=== PATIENT | male | born 1945 | race Caucasian/White ===

== ENCOUNTER 2023-01-14 16:27 | Emergency (ER) | payer OTHER, SELFPAY ==
[2023-01-14] VITALS (18 sets, daily range): BP systolic 110–165; BP diastolic 64–80; PULSE 85–109; RESP 15–33; TEMP 37.3; O2SAT 94–100
--- NOTE | ~2023-01-14 | CT_ITS ---
EXAMINATION: CT brain wo con DATE: 01/14/2023 18:55 INDICATION: Syncope. Possible seizure. Metastatic disease. TECHNIQUE: Computed tomography (CT) of the head was performed without intravenous contrast. Sagittal and coronal reconstructions were performed. The mA was adjusted according to patient size. Iterative reconstruction technique was employed. The dose-length product was 605.33 mGy-cm. COMPARISON: None FINDINGS: No acute intracranial hemorrhage, acute infarction or abnormal extra axial fluid collection. There is moderate scattered white matter hypoattenuation consistent with chronic small vessel ischemi c disease. Ventricles are normal and symmetric. No mass/mass effect. Changes of bilateral intraocula r lens replacement. The orbits, paranasal sinuses and left mastoid air cells are normal. Moderate rig ht mastoid effusion. IMPRESSION: 1. No acute intracranial process. 2. Moderate scattered white matter hypoattenuation consistent with chronic small vessel ischemic dise ase. Reviewed, dictated and finalized at location A. IMPRESSION: 1. No acute intracranial process. 2. Moderate scattered white matter hypoattenuation consistent with chronic smal l vessel ischemic disease.
--- NOTE | ~2023-01-14 | XR_ITS ---
EXAMINATION: XR chest 2V DATE: 01/14/2023 19:01 INDICATION: Syncope TECHNIQUE: frontal and lateral views of the chest were obtained. COMPARISON: None FINDINGS: Opacities at the left lower lung zone which includes a small left pleural effusion with blunting at t he posterior sulcus. Mild streaky atelectasis at the right costophrenic angle. No pulmonary edema, or pneumothorax or right-sided pleural effusion. Heart size is normal. Mild upper thoracic levocurvatur e with mild spondylosis. There are bridging osteophytes at multiple levels in the spine, consistent w ith diffuse idiopathic skeletal hyperostosis (DISH). IMPRESSION: 1. Small left pleural effusion with mild left basilar atelectasis versus less likely pneumonia. Reviewed, dictated and finalized at location A. IMPRESSION: 1. Small left pleural effusion with mild left basilar atelectasis versus less l ikely pneumonia.
--- NOTE | ~2023-01-14 | US_ITS ---
EXAMINATION: US venous doppler UE DATE: 01/14/2023 18:17 INDICATION: Left upper limb swelling TECHNIQUE: Grayscale images without and with compression and Doppler images of the left upper extremi ty veins were obtained. COMPARISON: None. FINDINGS: The left internal jugular vein, subclavian vein, axillary vein, brachial vein, basilic vein, radial v ein, and ulnar vein are patent. Noncompressible thrombus in the partially compressible left cephalic vein. IMPRESSION: 1. Thrombus in the left cephalic vein. Reviewed, dictated and finalized at location A.
--- NOTE | 2023-01-14 16:50 | ECG_ITS ---
Measurements Intervals [place] Rate: 102 P: 29 [place]: 136 QRS: 32 QRSD: 148 T: 18 QT: 383 QTc: 501 Interpretive Statements SINUS TACHYCARDIA RIGHT BUNDLE BRANCH BLOCK [120+ ms QRS DURATION, UPRIGHT V1, 40+ ms S IN I/aVL/V4/V5/V6] NO PREVIOUS ECG AVAILABLE FOR COMPARISON Electronically Signed On 01-14-2023 17:19:13 CDT by Gillian Marsh M.D.
[2023-01-14 17:17] LABS: Hematocrit 26.5 % (42.0-52.0); Hemoglobin 8.4 g/dL (14.0-18.0); Mean Corpuscular HGB Conc 31.7 g/dl (32-36); Mean Corpuscular Volume 94.6 fl (80-100); Mean Platelet Volume 10.9 fl (7.4-10.4); Platelet Count Result 161 k/mm3 (150-375); Red Cell Distribution Width 17.2 % (11.5-14.5); White Blood Count 5.2 K/mm3 (4.5-10.0)
[2023-01-14 17:28] LABS: Prothrombin Time 13.2 Seconds (11.1-14.7)
[2023-01-14 17:30] LABS: Partial Thromboplastin Time 33.7 SECONDS (22.3-36.8)
[2023-01-14 17:31] LABS: Alanine Aminotransferase 16 U/L (6-50); Albumin Level 2.8 g/dL (3.5-5.1); Alkaline Phosphatase 158 U/L (38-126); Anion Gap 0 mmol/L (8-16); Aspartate Amino Transferase 25 U/L (17-59); Bilirubin,Total 0.2 mg/dL (0.2-1.3); Blood Urea Nitrogen 13 mg/dL (9-20); Calcium 7.7 mg/dL (8.4-10.2); Carbon Dioxide 23 mmol/L (22-30); Chloride 110 mmol/L (98-107); Estimated CRCL calculation 48 ml/min; Estimated Glomerular Filt Rate > 60; Glucose 95 mg/dL (65-110); Lymphocytes Absolute Manual 0.36 K/mm3 (1.1-4.5); Lymphocytes Percent Manual 7 % (18-44); Neutrophils Percent Manual 75 % (46-73); Potassium 3.9 mmol/L (3.4-5.0); Sodium 133 mmol/L (137-145); Total Cells Counted 100
[2023-01-14 17:32] LABS: Monocytes Absolute Manual 0.93 K/mm3 (0.1-0.90); Monocytes Percent Manual 18 % (3-9); Ovalocytes 1+ (NORMAL); Platelet Estimate Adequate (Adequate); Schistocytes None Seen (NORMAL)
--- NOTE | 2023-01-14 17:52 | ED.GENADULT ---
HPI - General Adult General Chief complaint: Altered Mental Status Stated complaint: ams Time Seen by Provider: 01/14/23 17:01 Source: patient, family (son) and EMS Limitations: no limitations History of Present Illness HPI narrative: Patient is a 77-year-old male present to the emergency department accompanied by his son for a possible syncopal episode and seizure activity that was witnessed by police and the patient was brought in by EMS. Police reportedly stopped a car driving the wrong way on the road and then reported the patient having a syncopal episode and seizure-like activity to EMS in addition to a fever of 103. Patient notes that he does not recall what happened in the last thing he remembers is being in the EMS rig. Patient recalls driving and notes that he does not have any AC in his car and thinks that he was overheated. Patient denies any history of seizures in the past. She notes that overall he feels well at this time. Patient denies any chest pain, shortness of breath, cough, fevers, diarrhea, dysuria, hematuria, urinary frequency, urinary urgency, lower extremity swelling, history of blood clots, headache, numbness, weakness, vision changes, sore throat, difficulty swallowing, dysphonia, nasal congestion, neck pain, confusion. Patient states that he accidentally went to the [place] yesterday for his chemotherapy when he was actually supposed to go today and he was told that he has a possible infection or a blood clot of his left arm but denies being on any anticoagulation, admits to having an ultrasound performed, admits to being started on oral antibiotic and unsure of name. Patient denies any sick contacts. Patient notes that he has been eating and drinking well without difficulty and denies any nausea or vomiting. Patient admits to a redness over his left arm with some mild discomfort that has been present for a couple days. Patient denies urinary incontinence or stool incontinence. 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 Patient denies history of blood clots. Patient denies abdominal pain. Related Data Allergies Allergy/AdvReac Type Severity Reaction Status Date / Time tetracycline Allergy Unknown Verified 09/05/08 12:42 DOXYCYCLINE Allergy Unknown Uncoded 11/14/02 13:08 NONE Allergy Unknown Uncoded 11/14/02 13:08 DOXYCYCLINE HYCLATE (Generic Allergy Y Uncoded 11/14/02 14:06 Allergy) PMFSH Comments Patient admits to a past medical history of small cell lung cancer on chemotherapy. Patient denies alcohol or illicit drug use. Exam Const: General: no acute distress and alert Orientation/consciousness: patient oriented x3 HENMT: Head: normal to inspection Ears: external ears normal Mouth: Yes dry mucous membranes Throat: posterior oropharynx normal and uvula midline Eyes: Conjunctivae: conjunctivae normal Pupils: Equal, round and reactive pupils present EOM: EOMs intact bilaterally Neck: Neck: no meningeal signs Resp: Effort & Inspection: not labored, tachypneic and no use of accessory muscles Auscultation: clear to auscultation bilaterally Cardio: Rate: tachycardic Rhythm: regular rhythm Heart sounds: no murmurs GI: Inspection: non-distended GI Palp: Yes Soft to palpation and No Tenderness to palpation present (GI) : General: Yes no CVA tenderness Penis: Yes uncircumcised Back/Spine/Pelvis: Other: No midline vertebral tenderness to palpation or step-offs. Skin: Other: Erythema over the proximal posterior left forearm without palpable fluctuance, there is palpable induration and warmth, mild tenderness to palpation, no joint space involvement, no crepitus, no obvious deformities, no overlying breaks in the skin. Neuro: General: patient oriented x3, moves al
[2023-01-14 18:12] LABS: Appearance Urine Clear (Clear); Bilirubin Urine Negative (Negative); Blood Urine Negative (Negative); Color Urine Yellow (Yellow); Glucose Urine UA Negative (Negative); Ketones Urine Negative (Negative); Leukocyte Esterase Ur Negative LEU/UL (Negative); Nitrate Urine Negative (Negative); Protein Urine Negative (Negative); Specific Grav Ur 1.013 (1.001-1.035); Urobilinogen Urine 0.2 mg/dL (<2.0)
[2023-01-14 18:15] LABS: Add Urine Microscopic? NO
[2023-01-14 18:22] LABS: Ethanol < 10 mg/dL (<10)
[2023-01-14 18:23] LABS: D Dimer 3.07 ug/mL (<0.48)
[2023-01-14 18:32] LABS: Magnesium 1.6 mg/dL (1.6-2.3)
[2023-01-14 18:45] LABS: NT Pro B Type Natriuretic Pept 514 pg/mL (19.9-100); Troponin I < 0.012 ng/mL (0.000-0.034)
[2023-01-14] MEDS: ceFAZolin 1 GM/NS 50 ML 1 GM/50 ML BAG IVPB (19:00)
[2023-01-14 19:01] LABS: Lactic Acid Reflex 1.1 mmol/L (0.7-2.0)
[2023-01-14 19:01] LABS: CRP 3.1 mg/dL (<1.0)
[2023-01-14 20:49] LABS: Free T4 Free Thyroxine Reflex 0.98 ng/dL (0.78-2.19)
[2023-01-14 22:12] LABS: Total Triiodothyronine (T3) 1.21 NG/ML (0.97-1.69)
== END 2023-01-14 20:30 | disposition home or self-care (01) ==
PROVIDERS: Emergency Provider Student in an Organized Health Care Education/Training Program; PCP Family Medicine Adolescent Medicine
DX: I82.612 Acute embolism and thrombosis of superficial veins of left upper extremity (principal); L03.114 Cellulitis of left upper limb; T67.5XXA Heat exhaustion, unspecified, initial encounter; C34.90 Malignant neoplasm of unspecified part of unspecified bronchus or lung; C79.31 Secondary malignant neoplasm of brain; C79.51 Secondary malignant neoplasm of bone; C79.89 Secondary malignant neoplasm of other specified sites; Z79.899 Other long term (current) drug therapy; R00.0 Tachycardia, unspecified; I45.10 Unspecified right bundle-branch block; R91.8 Other nonspecific abnormal finding of lung field; X30.XXXA Exposure to excessive natural heat, initial encounter
CPT/HCPCS: 36415; 70450; 71046; 80053; 80307; 81003; 83605; 83735; 83880; 84439; 84443; 84480; 84484; 85025; 85380; 85610; 85730; 86140; 87040; 87081; 93005; 93971; 96361; 96365; 99284; J0690; J7120

== ENCOUNTER 2024-03-21 14:05 | Inpatient (IN) | payer MEDICARE, OTHER, SELFPAY ==
--- NOTE | ~2024-03-21 | CT_ITS ---
EXAMINATION: CT chest abdomen pelvis w con DATE: 03/22/2024 13:05 INDICATION: Lung cancer. Brain mass. TECHNIQUE: Computed tomography (CT) of the chest, abdomen, and pelvis was performed with 100 mL Omnip aque 350 intravenous contrast. Automated exposure control and iterative reconstruction technique were employed. The dose-length product was 466.46 mGy-cm. COMPARISON: None FINDINGS: CHEST CT: There is mild emphysema. There is mild atelectasis bilaterally. There is a 3.1 x 1.1 cm mass in left lung upper lobe abutting the major fissure. There is a small loculated left pleural effusion with ple ural thickening. The heart size is normal. There are coronary artery calcifications. No pericardial e ffusion. There are widespread sclerotic lesions of bone. ABDOMEN/PELVIS CT: There are greater than 10 masses in the liver measuring up to 3.6 cm. The gallbladder, spleen, pancre as, and adrenal glands are normal. There are cysts in the kidneys measuring up to 3.1 cm on the right . There are bilateral inguinal hernias containing fat. The prostate is mildly enlarged. The bladder i s distended. There is an anastomosis in the sigmoid colon. There are no dilated loops of bowel. The a ppendix is not visualized. There is calcified atherosclerosis of the aorta and many of the other kasey daniel. There are no pathologically enlarged lymph nodes. There is no free intraperitoneal fluid. Ther e are widespread sclerotic lesions of bone. IMPRESSION: 1. Liver masses and widespread bone lesions, consistent with metastatic disease. 2. 3.1 x 1.1 cm mass in left lung upper lobe, which may be primary bronchogenic carcinoma. Correlate with treatment history. 3. Small loculated left pleural effusion. Reviewed, dictated and finalized at location B. IMPRESSION: 1. Liver masses and widespread bone lesions, consistent with metastatic disease . 2. 3.1 x 1.1 cm mass in left lung upper lobe, which may be primary bronchogenic carcinoma. Correlate with treatment history. 3. Small loculated left pleural effusion.
--- NOTE | ~2024-03-21 | XR_ITS ---
EXAMINATION: XR chest 2V Exam Date/Time: 03/21/2024 15:18 CDT HISTORY: weakness, HX lung cancer Comparison: 01/14/2023. RESULT: Lines, tubes, and devices: None. Lungs and pleura: Emphysematous change. Mild ill-defined subsegmental bilateral medial basilar opacit ies. Mild left posterior costophrenic angle blunting. Cardiomediastinal silhouette: Stable. Other: No acute osseous or upper abdominal finding. IMPRESSION: Subsegmental bibasilar atelectasis/consolidation. Small left pleural effusion. Reviewed, dictated and finalized at location K.
--- NOTE | ~2024-03-21 | CT_ITS ---
EXAMINATION: CT brain wo con DATE: 03/22/2024 09:26 INDICATION: TECHNIQUE: Computed tomography (CT) of the head was performed without intravenous contrast. Sagittal and coronal reconstructions were performed. The mA was adjusted according to patient size. Iterative reconstruction technique was employed. The dose-length product was 605.33 mGy-cm. COMPARISON: head CT dated 01/14/2023 FINDINGS: Vasogenic edema in the left frontal lobe surrounding a 2.0 x 1.7 cm peripherally hypoattenuation, los trally lower density intra-axial mass in the anteroinferior left frontal lobe along the floor of the anterior cranial fossa. There is local mass effect with effacement of a few of the adjacent sulci. Th ere is suggestion of an additional 7 mm soft tissue density positioned approximately 1-1.5 cm posteri or superior from the mass also suspicious for malignancy and raising possibility of metastatic diseas e. Small cluster of calcifications at the inferomedial left occipital lobe which is new since the felisha or study and could also represent additional potentially metastatic lesion. No acute intracranial hem orrhage, acute infarction or abnormal extra axial fluid collection. There is extensive white matter h ypoattenuation consistent with chronic small vessel ischemic disease. Ventricles are normal and symm etric. Changes of bilateral intraocular lens replacement. Small right mastoid effusion. Paranasal sin uses are clear. Chronic rightward bowing of the nasal septum. IMPRESSION: 1. 2.0 cm intra-axial left frontal lobe mass with surrounding vasogenic edema concerning for malignan cy. Additional small suspected nodule also in the left frontal lobe and new cluster of calcifications in the left occipital suggesting this may be related to metastatic disease in this patient with repo rted history of prior lung cancer. Consider further evaluation with pre and postcontrast brain MR as well as CT of the chest, abdomen and pelvis to assess for any additional metastatic disease. Reviewed, dictated and finalized at location A. IMPRESSION: 1. 2.0 cm intra-axial left frontal lobe mass with surrounding vasogenic edema c oncerning for malignancy. Additional small suspected nodule also in the left fr ontal lobe and new cluster of calcifications in the left occipital suggesting t his may be related to metastatic disease in this patient with reported history of prior lung cancer. Consider further evaluation with pre and postcontrast bra in MR as well as CT of the chest, abdomen and pelvis to assess for any addition al metastatic disease.
[2024-03-21 14:14] VITALS: BP 113/78; PULSE 89; RESP 16; TEMP 36.4; O2SAT 97
--- NOTE | 2024-03-21 14:45 | ECG_ITS ---
Test Date: 2024-03-21 14:52:44 Measurements Intervals [place] Rate: 87 P: 44 [place]: 158 QRS: 79 QRSD: 156 T: 36 QT: 410 QTc: 494 Interpretive Statements SINUS RHYTHM INTRAVENTRICULAR CONDUCTION DELAY [130+ ms QRS DURATION] No previous ECG available for comparison Electronically Signed On 03-22-2024 14:23:31 CDT by Linda Walker M.D.
[2024-03-21 14:56] LABS: Basophils Percent Auto 0.5 % (0.2-1.2); Eosinophils Absolute Auto 0.2 K/mm3 (0-0.3); Eosinophils Percent Auto 1.9 % (0-4.4); Hematocrit 42.8 % (42.0-52.0); Hemoglobin 13.8 g/dL (14.0-18.0); Immature Granulocyte Absolute 0.03 K/mm3 (0.00-0.031); Immature Granulocyte Percent A 0.3 % (0-0.5); Lymphocytes Absolute Auto 0.87 K/mm3 (0.9-3.2); Lymphocytes Percent Auto 9.8 % (18.3-44.2); Mean Corpuscular HGB Conc 32.2 g/dl (32-36); Mean Corpuscular Hemoglobin 32.1 pg (26-34); Mean Corpuscular Volume 99.5 fl (80-100); Mean Platelet Volume 11.2 fl (7.4-10.4); Monocytes Absolute Auto 0.8 K/mm3 (0.1-0.6); Monocytes Percent Auto 8.9 % (2.6-8.5); Neutrophils Percent Auto 78.6 % (45.5-73.1); Platelet Count Result 284 k/mm3 (150-375); Red Cell Distribution Width 12.9 % (11.5-14.5); White Blood Count 8.9 K/mm3 (4.5-10.0)
[2024-03-21 15:07] LABS: Alanine Aminotransferase 46 U/L (6-50); Albumin Level 4.7 g/dL (3.5-5.1); Alkaline Phosphatase 139 U/L (38-126); Anion Gap 14 mmol/L (4-12); Aspartate Amino Transferase 64 U/L (17-59); Bilirubin,Total 0.7 mg/dL (0.2-1.3); Blood Urea Nitrogen 34 mg/dL (9-20); Calcium 9.6 mg/dL (8.4-10.2); Carbon Dioxide 27 mmol/L (22-30); Chloride 100 mmol/L (98-107); Estimated CRCL calculation 29 ml/min; Estimated Glomerular Filt Rate 37; Glucose 101 mg/dL (65-110); Potassium 4.4 mmol/L (3.4-5.0); Sodium 141 mmol/L (137-145)
[2024-03-21 17:13] VITALS: BP 111/76; PULSE 85; RESP 20; O2SAT 97
[2024-03-21] MEDS: SODIUM CHLORIDE 0.9% IV 1,000 ML 999 ML IV CONT ×2 (17:14→21:30)
--- NOTE | 2024-03-21 17:14 | PC.NURSE ---
Pt educated that MD would like a urine sample. Pt states he does not have to go at this time. Urinal placed at bedside. Call light provided. Pt educated to call if he needs assistance. Will reassess after fluid administration.
--- NOTE | 2024-03-21 17:55 | PM.IMHP ---
H&P: HPI History of Present Illness Date/Time: 03/21/24 17:55 Chief Complaint: Fall. Narrative: This is a 78-year-old male with squamous cell carcinoma of the lung who presented to the emergency department via EMS from a local store for evaluation after a fall. The patient provides the following history. He was out shopping today and began to feel a bit lightheaded and dizzy. This caused him to stumble and fall backwards onto the floor. He does not think he hit his head but cannot say for sure. There was no loss of consciousness and he denies injuries. With further questioning he admits that is not unusual for him to feel lightheaded and dizzy. He says he has been eating and drinking as per usual. He denies vertigo, weight loss, change in medications, chest pain, pleuritic pain, shortness of breath, nausea, vomiting, diarrhea, dysuria, and cold and flu symptoms. In the ED: Vitals were stable on arrival. Labs were significant for a hemoglobin of 13.8, BUN 34, creatinine 1.80, AST 64, ALT 139. Urine was positive for trace ketones and 1+ leukocyte esterase. Chest x-ray showed subsegmental bibasilar atelectasis/consolidation a small left pleural effusion. He was given a 2 L normal saline bolus and is being admitted in this setting for further treatment and evaluation. He is being admitted in this setting for further treatment and evaluation. Review of Systems Review of Systems: 12 systems were reviewed and are negative except for as per HPI. [facility] Past Medical History Medical History (Updated 03/22/24 @ 00:07 by Samira Joy PA-C) Diverticulitis (01/2001) Seasonal allergies Squamous cell carcinoma lung Superficial venous thrombosis of left arm (12/2022) Family History Family History Other Diabetes mellitus Heart disease Social History Social History (Updated 03/22/24 @ 00:05 by Samira Joy PA-C) Social History: Surrogate medical decision maker: Bharat Mejia, children. Code status: Full code. 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 Spiritual care concerns: No Meds Home Medications and Allergies Home Medications Medication Instructions Recorded Confirmed Type Unable to Obtain Home Medications 03/21/24 03/21/24 History Allergies Allergy/AdvReac Type Severity Reaction Status Date / Time tetracycline Allergy Unknown Unknown Verified 03/21/24 20:14 DOXYCYCLINE Allergy Unknown Unknown Uncoded 03/21/24 20:14 NONE Allergy Unknown Unknown Uncoded 03/21/24 20:14 DOXYCYCLINE HYCLATE (Generic Allergy Y Uncoded 11/14/02 14:06 Allergy) Vital Signs Vital Signs - 24 hr 03/21/24 14:14 03/21/24 17:13 Temperature 97.5 F L Pulse Rate 89 85 Respiratory Rate 16 20 Blood Pressure 113/78 111/76 Pulse Oximetry 97 97 Oxygen Delivery Room Air Exam Narrative: General: Mildly ill-appearing male supine in bed. Weight: 61.3 kg. BMI: 20.5. HEENT: Normocephalic, atraumatic. Hard of hearing. PERRL, EOMI. Sclera anicteric. Tacky mucous membranes. Neck: Supple. Respiratory: Respirations are nonlabored. Lung sounds are a bit diminished at the bases but otherwise clear to auscultation. Cardiovascular: Regular rate and rhythm with S1-S2. Gastrointestinal: Abdomen is soft, nontender, and nondistended with positive bowel sounds. Skin: Warm and dry. Skin tear on the right elbow. Extremities: No cyanosis, clubbing, or significant edema. Radial and pedal pulses intact. Neurological: Alert and oriented. Cranial nerves 2-12 are grossly intact. No gross focal deficits to casual conversation. Gait was not assessed. Psychiatric: Pleasant and cooperative with appropriate mood and affect. H&P: Results Labs Labs: Short CBC 03/21/24 Range/Units 14:49 WBC 8.9 (4.5-10.0) K/mm3 Hgb 13.8 L D (14.0-18.0) g/dL Hct 42.8 (42.0-52.0) % Plt Count 284 D (150-375) k/mm3 BMP 03/21/24 14:49 Sodium 141 Potassium 4.4 Chloride 100 Carbon Dioxide 27 BUN 34 H D Creatinine 1.80 H Glucose 101 Calcium 9.6 Liver Function 03/21/24 Range/Units 14:49 Total Bilirubin 0.7 (0.2-1.3) mg/dL AST 64 H (17-59) U/L ALT 46 (6-50) U/L Alkaline Phosphatase 139 H (38-126) U/L Albumin 4.7 (3.5-5.1) g/dL Imaging Chest X-Ray 03/21/24 15:25 IMPRESSION: Subsegmental bibasilar atelectasis/consolidation. Small left pleural effusion. Assessment and Plan Assessment and plan (1) Acute kidney injury: Code(s): N17.9 - Acute kidney failure, unspecified Status: Acute (2) Dehydration: Code(s): E86.0 - Dehydration Status: Acute (3) Fall from ground level: Code(s): W18.30XA - Fall on same level, unspecified, initial encounter Status: Acute (4) Squamous cell carcinoma lung: Code(s): C34.90 - Malignant neoplasm of unspecified part of unspecified bronchus or lung Status: Acute Plan The patient presented to the emergency department for evaluation after a fall as detailed in HPI. Labs, imaging, EKG, and all reports were personally reviewed. He admits that he was feeling a bit lightheaded and dizzy but denies feelings of near-syncope. He will be monitored on telemetry overnight. Check orthostatic vital signs Q shift. Brain CT ordered as he cannot really say whether not he hit his head in the fall. He appears quite dry on exam and by labs and is being hydrated overnight. Monitor strict I/O. Renally dose all medications and avoid nephrotoxic agents. His medications will be reviewed and resumed as appropriate. Findings and treatment plan were discussed with the patient. Questions were solicited and answered to satisfaction. The patient's medical management will be taken over by the hospitalist team in a.m. Quality VTE Prophylaxis VTE prophylaxis: mechanical ordered If No VTE Prophylaxis Answer both mechanical and pharmacologic: Reason no pharmacologic proph: medical contraindication (fall risk) The patient has been admitted under observation status. Hospitalist [facility] Advance Care Plan I have confirmed that the patient's Advanced Care Plan is present, code status is documented, or surrogate decision maker is listed in patient medical record.: Yes Medication Reconciliation I have utilized all available resources to obtain, update and review the patients current medications (includes all prescriptions, OTC, herbals, cannabis, and nutritional supplements).: Yes
[2024-03-21 18:17] VITALS: BP 112/79; PULSE 85; RESP 16; O2SAT 100
--- NOTE | 2024-03-21 18:31 | ED_ITS ---
HPI - Weakness General Chief complaint: Weakness Stated complaint: weakness Time Seen by Provider: 03/21/24 15:30 Source: patient Mode of arrival: EMS Limitations: no limitations History of Present Illness HPI Narrative: 78-year-old with a history of lung cancer presently on oral chemo was brought in from [employer]. Patient states that he was shopping he felt extremely weak and was about to fall. Upon EMS arrival patient was found to be hypotensive did receive IV fluids and was later transferred to the ER. Patient denies having any chest pain or shortness of breath. No history of nausea or vomiting. Laila carranza lives by himself in [facility] and his son lives in [facility] . Complaint: generalized weakness Location: generalized Migration: none Severity: moderate Relieving factors: none Related Data Allergies Allergy/AdvReac Type Severity Reaction Status Date / Time tetracycline Allergy Unknown Verified 09/05/08 12:42 DOXYCYCLINE Allergy Unknown Uncoded 11/14/02 13:08 NONE Allergy Unknown Uncoded 11/14/02 13:08 DOXYCYCLINE HYCLATE (Generic Allergy Y Uncoded 11/14/02 14:06 Allergy) Review of Systems Review of Systems: All systems reviewed & are unremarkable except as noted in HPI and below Constitutional: Constitutional: Reports no additional constitutional complain ts Eyes: Eyes: Reports no additional eye complaints ENT: Reports system reviewed and no additional complaints, except as documented Cardiovascular: Cardiovascular: Reports no additional cardiovascular complaints Respiratory: Respiratory: Reports no additional respiratory complaints Gastrointestinal: Gastrointestinal: Reports no additional gastrointestinal complaints Musculoskeletal: Musculoskeletal: Reports no additional musculoskeletal complaints Integumentary/Breasts: Skin/Breast: Reports system reviewed and no additional complaints, except as docu Neurologic: Reports system reviewed and no additional complaints, except as documented [facility] Past Medical History Medical History (Updated 03/21/24 @ 18:38 by Clyaton Stokes MD) Diverticulitis (01/2001) Seasonal allergies Superficial venous thrombosis of left arm (12/2022) Family History Family History Other Diabetes mellitus Heart disease Social History Social History Social History: Surrogate medical decision maker: Code status: Full code. 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 Exam Narrative: GENERAL: Well-appearing, well-nourished, and in no acute distress.hard of hearing HEAD: Normocephalic, atraumatic. EYES: PERRLA and EOMI. ENT: . Mucous membranes moist. NECK: Supple. CHEST: Clear to auscultation. No respiratory distress. HEART: Regular rate and rhythm. No murmur heard. Normal peripheral pulses. ABDOMEN: Soft, nontender, nondistended, normal active bowel sounds. EXTREMITIES: Normal range of motion. No edema. SKIN: Warm, dry, no rash. NEURO: No focal deficits. Alert and oriented x3. PSYCH: Normal mood and affect. Course Course Emergency Course: Patient states he is feeling slightly better after IV fluids. I did inform him about his lab work, EKG and chest x-ray findings he is agreeable with admission. Vital Signs Vital signs: Vital Signs Temperature 36.4 C L 03/21/24 14:14 Pulse Rate 89 03/21/24 14:14 Respiratory Rate 16 03/21/24 14:14 Blood Pressure 113/78 03/21/24 14:14 Pulse Oximetry 97 03/21/24 14:14 Oxygen Delivery Room Air 03/21/24 14:14 Temperature 36.4 C L 03/21/24 14:14 Pulse Rate 85 03/21/24 18:17 Respiratory Rate 16 03/21/24 18:17 Blood Pressure 112/79 03/21/24 18:17 Pulse Oximetry 100 03/21/24 18:17 Oxygen Delivery Room Air 03/21/24 14:14 MDM - Weakness MDM Narrative Medical decision making narrative: 78-year-old with history of sudden onset of generalized weakness patient was found to be hypo intensive responded to fluids on arrival to the ER his blood pressure slightly improved. Will obtain EKG and lab work and continue to hydrate. Differential Diagnosis Differential diagnosis: Likely hypoglycemia and dehydration Medical Records Attestation: I reviewed the patient's medical records. Lab Data Attestation: I reviewed the patient's lab results. 03/21/24 14:49 03/21/24 14:49 Labs: Lab Results 03/21/24 Range/Units 14:49 WBC 8.9 (4.5-10.0) K/mm3 RBC 4.30 L (4.6-6.20) M/mm3 Hgb 13.8 L D (14.0-18.0) g/dL Hct 42.8 (42.0-52.0) % MCV 99.5 (80-100) fl MCH 32.1 (26-34) pg MCHC 32.2 (32-36) g/dl RDW 12.9 (11.5-14.5) % Plt Count 284 D (150-375) k/mm3 MPV 11.2 H (7.4-10.4) fl Immature Gran % (Auto) 0.3 (0-0.5) % Neut % (Auto) 78.6 H (45.5-73.1) % Lymph % (Auto) 9.8 L (18.3-44.2) % Dodge % (Auto) 8.9 H (2.6-8.5) % Eos % (Auto) 1.9 (0-4.4) % Baso % (Auto) 0.5 (0.2-1.2) % Lymph # (Auto) 0.87 L (0.9-3.2) K/mm3 [place] # (Auto) 0.8 H (0.1-0.6) K/mm3 Eos # (Auto) 0.2 (0-0.3) K/mm3 Baso # (Auto) 0.0 (0.0-0.1) K/mm3 Abs Immat Gran (auto) 0.03 (0.00-0.031) K/mm3 Absolute Neuts (auto) 7.0 H (1.3-6.7) K/mm3 Absolute Nucleated RBC 0.000 (0.0-0.012) K/mm3 Nucleated RBC % 0.0 (0.0-0.2) % Sodium 141 (137-145) mmol/L Potassium 4.4 (3.4-5.0) mmol/L Chloride 100 (98-107) mmol/L Carbon Dioxide 27 (22-30) mmol/L Anion Gap 14 H (4-12) mmol/L BUN 34 H D (9-20) mg/dL Creatinine 1.80 H (0.7-1.3) mg/dL Estim Creat Clear Calc 29 ml/min Estimated GFR 37 L (59 - ) Glucose 101 (65-110) mg/dL Calcium 9.6 (8.4-10.2) mg/dL Total Bilirubin 0.7 (0.2-1.3) mg/dL AST 64 H (17-59) U/L ALT 46 (6-50) U/L Alkaline Phosphatase 139 H (38-126) U/L Total Protein 9.0 H (6.3-8.2) g/dL Albumin 4.7 (3.5-5.1) g/dL Imaging Data Radiologist's impression: ITS Impressions Chest X-Ray 03/21/24 15:25 IMPRESSION: Subsegmental bibasilar atelectasis/consolidation. Small left pleural effusion. ECG Data EKG #1: ECG completion date: 03/21/24 ECG completion time: 14:52 EKG Interpretation: normal rate (87), sinus rhythm, no ST changes, NL axis and no acute changes Discharge Plan Discharge Clinical Impression: SIDNEY (acute kidney injury), Near syncope Patient Disposition: Still a Patient Condition: Stable Follow-up/Referrals: Bright Harding MD [Primary Care Provider] - Time of Disposition: 18:32
[2024-03-21 19:03] LABS: Add Urine Microscopic? YES; Appearance Urine Clear (Clear); Bacteria Urine None Seen /hpf; Bilirubin Urine Negative (Negative); Blood Urine Negative (Negative); Color Urine Yellow (Yellow); Glucose Urine UA Negative (Negative); Ketones Urine Trace mg/dL (Negative); Leukocyte Esterase Ur 1+ LEU/UL (Negative); Need Manual Microscopic Reviewed; Nitrate Urine Negative (Negative); Non Pathogenic Casts 0-2; Protein Urine Trace mg/dL (Negative); RBC Urine 0-2 /hpf (0-2); Specific Grav Ur 1.023 (1.001-1.035); Squamous Epithelial Cell Urine Occasional /hpf (Few); Urobilinogen Urine 0.2 mg/dL (<2.0); WBC Urine 0-5 /hpf (0-3)
[2024-03-21] MEDS: SODIUM CHLORIDE 0.9% IV 1,000 ML 125 ML IV CONT ×2 (19:18→19:55)
[2024-03-21 19:29] VITALS: BP 97/65; PULSE 77; RESP 16; O2SAT 97
[2024-03-21 19:31] VITALS: BMI 20.5
--- NOTE | 2024-03-21 19:45 | ADMGEN ---
This patient, King Gricel Mejia, was admitted to 2 Medical Room 257-01. Patient/family oriented to hospital policies and general routines including ID bracelet, bed and alarms, visiting hours, pain management, procedures, bathroom and other care routines, personal items, smoking policy, room service/diet, and visiting hours. Information on how to activate the Rapid Response Team has been discussed. Patient/Family are encouraged to report perceived risks to care and to ask questions if they do not understand what they are told or what they should do.
[2024-03-21 20:15] VITALS: BP 97/62; PULSE 50; RESP 16; TEMP 36.1; O2SAT 97
--- NOTE | 2024-03-21 20:16 | PC.NURSE ---
Pt utilizes [place] for pharmacy; no external medication list available. Pt states I have a whole box of medications at home ; RN asked if patient knew the names/dosage of medication and patient was unable to provide information. RN asked if patient had family or other resource that would be able to provide a list of medications and patient replied No, but I am supposed to leave here tomorrow anyway .
[2024-03-22] VITALS (9 sets, daily range): BP systolic 91–141; BP diastolic 42–77; PULSE 66–83; RESP 14–18; TEMP 36.4–36.8; O2SAT 92–99
[2024-03-22 06:21] LABS: Hematocrit 35.2 % (42.0-52.0); Hemoglobin 11.3 g/dL (14.0-18.0); Mean Corpuscular HGB Conc 32.1 g/dl (32-36); Mean Corpuscular Volume 99.7 fl (80-100); Mean Platelet Volume 11.1 fl (7.4-10.4); Platelet Count Result 213 k/mm3 (150-375); Red Blood Count 3.53 M/mm3 (4.6-6.20); Red Cell Distribution Width 12.9 % (11.5-14.5)
[2024-03-22 06:55] LABS: Alanine Aminotransferase 30 U/L (6-50); Albumin Level 3.5 g/dL (3.5-5.1); Alkaline Phosphatase 98 U/L (38-126); Anion Gap 9 mmol/L (4-12); Aspartate Amino Transferase 36 U/L (17-59); Bilirubin,Total 0.4 mg/dL (0.2-1.3); Blood Urea Nitrogen 23 mg/dL (9-20); Calcium 8.1 mg/dL (8.4-10.2); Carbon Dioxide 25 mmol/L (22-30); Chloride 108 mmol/L (98-107); Creatine Kinase 173 U/L (55-170); Estimated CRCL calculation 39 ml/min; Estimated Glomerular Filt Rate 58; Glucose 72 mg/dL (65-110); Magnesium 1.8 mg/dL (1.6-2.3); Potassium 3.9 mmol/L (3.4-5.0); Sodium 142 mmol/L (137-145)
--- NOTE | 2024-03-22 08:37 | P.PNIM_ITS ---
Progress Note: A&P Assessment and Plan (1) Fall from ground level: Code(s): W18.30XA - Fall on same level, unspecified, initial encounter Status: Acute Assessment and Plan: possible syncope orthostatic vital signs Q shift Brain CT pending CK 173 (2) Acute kidney injury: Code(s): N17.9 - Acute kidney failure, unspecified Status: Acute Assessment and Plan: Monitor strict I/O. Renally dose all medications and avoid nephrotoxic agents. creatinine improving with IV fluids (3) Dehydration: Code(s): E86.0 - Dehydration Status: Acute Assessment and Plan: patient received 2 L IV fluids on admission maintenance IV fluids for hydration encourage oral intake drop in hemoglobin is likely due to dilution, no acute signs of bleeding (4) Squamous cell carcinoma lung: Code(s): C34.90 - Malignant neoplasm of unspecified part of unspecified bronchus or lung Status: Acute Assessment and Plan: chest x-ray showing Subsegmental bibasilar atelectasis/consolidation. Small left pleural effusion. 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 request records from the [facility] patient states that he is on oral chemotherapy, waiting on records from the [place] patient does not know his medications (5) UTI (urinary tract infection): Code(s): N39.0 - Urinary tract infection, site not specified Status: Acute Assessment and Plan: could be the reason for the fall 1+ leukocyte esterase, nitrogen is negative IV fluids for hydration cultures and sensitivities pending (6) Brain mass: Code(s): G93.89 - Other specified disorders of brain Status: Acute Assessment and Plan: known to patient with history squamous cell carcinoma lung CT chest abdomen pelvis with contrast pending pre and postcontrast brain MR pending Plan Check orthostatic vital signs Q shift. IV fluids for hydration. Renally dose all medications and avoid nephrotoxic agents. Time Spent With Patient Time: Includes review of chart, time spent family, consulting teams and nursing. Vital signs were reviewed and they are stable. His medications will be reviewed and resumed as appropriate. Findings and treatment plan were discussed with the patient. Questions were solicited and answered to satisfaction. Care plan was discussed with nursing. over 55 minutes Subjective Date/time seen: 03/22/24 08:37 Interval history: 78-year-old male with squamous cell carcinoma of the lung who presented to the emergency department via EMS from a local store for evaluation after a fall. 2.0 cm intra-axial left frontal lobe mass with surrounding vasogenic edema concerning for malignancy. Additional small suspected nodule also in the left frontal lobe and new cluster of calcifications in the left occipital suggesting this may be related to metastatic disease in this patient with reported history of prior lung cancer. Consider further evaluation with pre and postcontrast brain MR as well as CT of the chest, abdomen and pelvis to assess for any additional metastatic disease. patient's son states that he has a history of brain cancer with Mets to the liver currently on treatment, patient states that he uses have a CT chest abdomen and pelvis. Records requested from the [facility] to compare brain and liver Mets. patient hypertensive and complaining of dizziness fluid bolus ordered. Review of Systems Review of Systems: 12 systems were reviewed and are negativ e except for as per HPI. Exam Narrative: General: Mildly ill-appearing male supine in bed. Weight: 61.3 kg. BMI: 20.5. HEENT: Normocephalic, atraumatic. Hard of hearing. PERRL, EOMI. Sclera anicteric. Tacky mucous membranes. Neck: Supple. Respiratory: Respirations are nonlabored. Lung sounds are a bit diminished at the bases but otherwise clear to auscultation. Cardiovascular: Regular rate and rhythm with S1-S2. Gastrointestinal: Abdomen is soft, nontender, and nondistended with positive bowel sounds. Skin: Warm and dry. Skin tear on the right elbow. Extremities: No cyanosis, clubbing, or significant edema. Radial and pedal pulses intact. Neurological: Alert and oriented. Cranial nerves 2-12 are grossly intact. No gross focal deficits to casual conversation. Gait was not assessed. Psychiatric: Pleasant and cooperative with appropriate mood and affect. Objective Data Vital Signs Vital Signs: Vital Signs - 24 hr 03/21/24 14:14 03/21/24 17:13 03/21/24 18:17 Temperature 97.5 F L Pulse Rate 89 85 85 Respiratory Rate 16 20 16 Blood Pressure 113/78 111/76 112/79 Pulse Oximetry 97 97 100 Oxygen Delivery Room Air 03/21/24 19:29 03/21/24 20:15 03/22/24 06:00 Temperature 97.0 F L 97.6 F Pulse Rate 77 50 L 78 Respiratory Rate 16 16 14 Blood Pressure 97/65 L 97/62 L 141/77 H Pulse Oximetry 97 97 95 Oxygen Delivery Intake/Output Intake/Output: Intake & Output 03/19/24 03/20/24 03/21/24 03/22/24 23:59 23:59 23:59 23:59 Intake Total 1197.9 395.8 Output Total 20 300 Balance 1177.9 95.8 Meds/Results Medications: Active Medications Generic Name Dose Route Start Last Admin Trade Name Freq PRN Reason Stop Dose Admin Acetaminophen 650 mg 03/21/24 18:38 Acetaminophen 325 Mg Tablet PO Q4H PRN Mild Pain (1-3) or Fever Sodium Chloride 1,000 mls @ 100 mls/hr 03/21/24 18:40 03/22/24 00:29 Normal Saline Iv IV CONT 100 mls/hr .Q10H SHIVA Infusion Ondansetron HCl 4 mg 03/21/24 18:38 Ondansetron Inj 4 Mg/2 Ml Vial IV PUSH Q4H PRN Nausea Radiology Results: ITS Impressions Chest X-Ray 03/21/24 15:25 IMPRESSION: Subsegmental bibasilar atelectasis/consolidation. Small left pleural effusion. Labs Labs: Laboratory Results - last 24 hr 03/21/24 03/21/24 03/22/24 14:49 18:19 05:50 WBC 8.9 7.0 RBC 4.30 L 3.53 L Hgb 13.8 L D 11.3 L Hct 42.8 35.2 L MCV 99.5 99.7 MCH 32.1 32.0 MCHC 32.2 32.1 RDW 12.9 12.9 Plt Count 284 D 213 MPV 11.2 H 11.1 H Immature Gran % (Auto) 0.3 Neut % (Auto) 78.6 H Lymph % (Auto) 9.8 L [place] % (Auto) 8.9 H Eos % (Auto) 1.9 Baso % (Auto) 0.5 Lymph # (Auto) 0.87 L [place] # (Auto) 0.8 H Eos # (Auto) 0.2 Baso # (Auto) 0.0 Abs Immat Gran (auto) 0.03 Absolute Neuts (auto) 7.0 H Absolute Nucleated RBC 0.000 Nucleated RBC % 0.0 Sodium 141 142 Potassium 4.4 3.9 Chloride 100 108 H Carbon Dioxide 27 25 Anion Gap 14 H 9 BUN 34 H D 23 H D Creatinine 1.80 H 1.20 Estim Creat Clear Calc 29 39 Estimated GFR 37 L 58 L Glucose 101 72 Calcium 9.6 8.1 L Magnesium 1.8 Total Bilirubin 0.7 0.4 AST 64 H 36 ALT 46 30 Alkaline Phosphatase 139 H 98 Total Creatine Kinase 173 H Total Protein 9.0 H 7.0 Albumin 4.7 3.5 Urine Color Yellow Urine Appearance Clear Urine pH 5.0 Ur Specific [place] 1.023 Urine Protein Trace Urine Glucose (UA) Negative Urine Ketones Trace H Ur Blood (Man) Negative Urine Nitrate Negative Urine Bilirubin Negative Urine Urobilinogen 0.2 Add Ur Microanalysis Reviewed Leukocyte Esterase Rfl 1+ H Urine RBC 0-2 Urine WBC 0-5 Ur Squamous Epith Cells Occasional Urine Bacteria None seen Urine Casts 0-2 Imaging Radiologist's impression: CT brain wo con DATE: 03/22/2024 09:26 INDICATION: TECHNIQUE: Computed tomography (CT) of the head was performed without intravenous contrast. Sagittal and coronal reconstructions were performed. The mA was adjusted according to patient size. Iterative reconstruction technique was employed. The dose-length product was 605.33 mGy-cm. COMPARISON: head CT dated 01/14/2023 FINDINGS: Vasogenic edema in the left frontal lobe surrounding a 2.0 x 1.7 cm peripherally hypoattenuation, centrally lower density intra-axial mass in the anteroinferior left frontal lobe along the floor of the anterior cranial fossa. There is local mass effect with effacement of a few of the adjacent sulci. There is suggestion of an additional 7 mm soft tissue density positioned approximately 1-1.5 cm pos terior superior from the mass also suspicious for malignancy and raising possibility of metastatic disease. Small cluster of calcifications at the inferomedial left occipital lobe which is new since the prior study and could also represent additional potentially metastatic lesion. No acute intracranial hemorrhage, acute infarction or abnormal extra axial fluid collection. There is extensive white matter hypoattenuation consistent with chronic small vessel ischemic disease. Ventricles are normal and symmetric. Changes of bilateral intraocular lens replacement. Small right mastoid effusion. Paranasal sinuses are clear. Chronic rightward bowing of the nasal septum. IMPRESSION: 1. 2.0 cm intra-axial left frontal lobe mass with surrounding vasogenic edema concerning for malignancy. Additional small suspected nodule also in the left frontal lobe and new cluster of calcifications in the left occipital suggesting this may be related to metastatic disease in this patient with reported history of prior lung cancer. Consider further evaluation with pre and postcontrast brain MR as well as CT of the chest, abdomen and pelvis to assess for any additional metastatic disease. CT chest abdomen pelvis w con DATE: 03/22/2024 13:05 INDICATION: Lung cancer. Brain mass. TECHNIQUE: Computed tomography (CT) of the chest, abdomen, and pelvis was performed with 100 mL Omnipaque 350 intravenous contrast. Automated exposure control and iterative reconstruction technique were employed. The dose-length product was 466.46 mGy-cm. COMPARISON: None FINDINGS: CHEST CT: There is mild emphysema. There is mild atelectasis bilaterally. There is a 3.1 x 1.1 cm mass in left lung upper lobe abutting the major fissure. There is a small loculated left pleural effusion with pleural thickening. The heart size is normal. There are coronary artery calcifications. No pericardial effusion. There are widespread sclerotic lesions of bone. ABDOMEN/PELVIS CT: There are greater than 10 masses in the liver measuring up to 3.6 cm. The gallbladder, spleen, pancreas, and adrenal glands are normal. There are cysts in the kidneys measuring up to 3.1 cm on the right. There are bilateral inguinal hernias containing fat. The prostate is mildly enlarged. The bladder is distended. There is an anastomosis in the sigmoid colon. There are no dilated loops of bowel. The appendix is not visualized. There is calcified atherosclerosis of the aorta and many of the other arteries. There are no pathologically enlarged lymph nodes. There is no free intraperitoneal fluid. There are widespread sclerotic lesions of bone. IMPRESSION: 1. Liver masses and widespread bone lesions, consistent with metastatic disease. 2. 3.1 x 1.1 cm mass in left lung upper lobe, which may be primary bronchogenic carcinoma. Correlate with treatment history. 3. Small loculated left pleural effusion. Quality VTE Prophylaxis VTE prophylaxis: mechanical ordered and pharmacologic ordered waiting on records from the [place] [facility] to medication reconcile Hospitalist [facility] Advance Care Plan I have confirmed that the patient's Advanced Care Plan is present, code status is documented, or surrogate decision maker is listed in patient medical record.: Yes
[2024-03-22] MEDS: SODIUM CHLORIDE 0.9% IV 1,000 ML 100 ML IV CONT (12:36)
[2024-03-22] MEDS: SODIUM CHLORIDE 0.9% IV 1,000 ML 125 ML IV CONT (21:38)
[2024-03-23] VITALS (9 sets, daily range): BP systolic 101–148; BP diastolic 58–97; PULSE 68–113; RESP 14–18; TEMP 36.1–36.6; O2SAT 93–98
[2024-03-23] MEDS: SODIUM CHLORIDE 0.9% IV 1,000 ML 125 ML IV CONT (05:37)
--- NOTE | 2024-03-23 08:10 | P.PNIM_ITS ---
Progress Note: A&P Assessment and Plan (1) Altered mental status: Code(s): R41.82 - Altered mental status, unspecified Status: Acute Assessment and Plan: increased confusion from yesterday, paranoid possibly due to UTI, start Rocephin sleep hygiene Atarax for anxiety or agitation the (2) Fall from ground level: Code(s): W18.30XA - Fall on same level, unspecified, initial encounter Status: Acute Assessment and Plan: possible syncope orthostatic vital signs Q shift Brain CT pending CK 173 (3) Acute kidney injury: Code(s): N17.9 - Acute kidney failure, unspecified Status: Acute Assessment and Plan: Monitor strict I/O. Renally dose all medications and avoid nephrotoxic agents. creatinine improving with IV fluids (4) Dehydration: Code(s): E86.0 - Dehydration Status: Acute Assessment and Plan: patient received 2 L IV fluids on admission maintenance IV fluids for hydration encourage oral intake drop in hemoglobin is likely due to dilution, no acute signs of bleeding (5) Squamous cell carcinoma lung: Code(s): C34.90 - Malignant neoplasm of unspecified part of unspecified bronchus or lung Status: Acute Assessment and Plan: chest x-ray showing Subsegmental bibasilar atelectasis/consolidation. Small left pleural effusion. 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 request records from the to compare patient states that he is on oral chemotherapy, waiting on records from the [facility] patient does not know his medications (6) UTI (urinary tract infection): Code(s): N39.0 - Urinary tract infection, site not specified Status: Acute Assessment and Plan: could be the reason for the fall 1+ leukocyte esterase, nitrogen is negative IV fluids for hydration cultures and sensitivities pending (7) Brain mass: Code(s): G93.89 - Other specified disorders of brain Status: Acute Assessment and Plan: known to patient with history squamous cell carcinoma lung CT chest abdomen pelvis with contrast pending pre and postcontrast brain MR pending Plan Check orthostatic vital signs Q shift. IV fluids for hydration. Renally dose all medications and avoid nephrotoxic agents. Time Spent With Patient Time with patient: Greater than 35 minutes Subjective Date/time seen: 03/23/24 08:10 Interval history: 78-year-old male with squamous cell carcinoma of the lung who presented to the emergency department via EMS from a local store for evaluation after a fall. Waiting on patient's records from the [place] to compare CT brain, chest abdomen pelvis to prior studies with malignancies. Drop in hemoglobin this morning could be delusional from fluids, hypotension overnight and dizziness fluid bolus ordered, SIDNEY resolved. PT ordered for discharge recommendations. Patient may need placement. patient with increased confusion today, believes that the hospital workers are a cult, paranoid, walking around room pulled out his IV. May discontinue IV fluids not IV needed at this time, decrease stimulation, improve sleep wake c ycle. Will add Atarax for sleep and anxiety. Review of Systems Review of Systems: 12 systems were reviewed and are negativ e except for as per HPI. Exam Narrative: General: Mildly ill-appearing male supine in bed. Weight: 61.3 kg. BMI: 20.5. HEENT: Normocephalic, atraumatic. Hard of hearing. PERRL, EOMI. Sclera anicteric. Tacky mucous membranes. Neck: Supple. Respiratory: Respirations are nonlabored. Lung sounds are a bit diminished at the bases but otherwise clear to auscultation. Cardiovascular: Regular rate and rhythm with S1-S2. Gastrointestinal: Abdomen is soft, nontender, and nondistended with positive bowel sounds. Skin: Warm and dry. Skin tear on the right elbow. Extremities: No cyanosis, clubbing, or significant edema. Radial and pedal pulses intact. Neurological: Alert and oriented only to self. Cranial nerves 2-12 are grossly intact. No gross focal deficits to casual conversation. Gait was not assessed. Psychiatric: paranoid Objective Data Vital Signs Vital Signs: Vital Signs - 24 hr 03/22/24 09:00 03/22/24 12:43 03/22/24 12:43 Temperature Pulse Rate 66 76 Respiratory Rate 18 18 Blood Pressure 95/62 L 98/58 L Pulse Oximetry 92 98 99 Oxygen Delivery Room Air 03/22/24 14:00 03/22/24 20:01 03/22/24 20:01 Temperature 97.6 F 98.2 F 98.2 F Pulse Rate 69 77 77 Respiratory Rate 18 18 18 Blood Pressure 96/63 L 95/56 L 95/56 L Pulse Oximetry 97 98 98 Oxygen Delivery 03/22/24 20:11 03/22/24 20:40 03/22/24 23:27 Temperature 98.1 F 98.0 F Pulse Rate 83 83 71 Respiratory Rate 16 16 16 Blood Pressure 91/61 L 92/42 L Pulse Oximetry 98 98 97 Oxygen Delivery Room Air 03/23/24 05:50 Temperature 97.9 F Pulse Rate 72 Respiratory Rate 16 Blood Pressure 101/61 Pulse Oximetry 98 Oxygen Delivery Intake/Output Intake/Output: Intake & Output 10/2803/21/24 03/22/24 03/23/24 23:59 23:59 23:59 23:59 Intake Total 1197.9 3268.1 1100 Output Total 20 700 Balance 1177.9 2568.1 1100 Meds/Results Medications: Active Medications Generic Name Dose Route Start Last Admin Trade Name Freq PRN Reason Stop Dose Admin Acetaminophen 650 mg 03/21/24 18:38 Acetaminophen 325 Mg Tablet PO Q4H PRN Mild Pain (1-3) or Fever Enoxaparin Sodium 40 mg 03/23/24 09:00 Enoxaparin 40 Mg/0.4 Ml Syringe SUB-Q DAILY SHIVA Sodium Chloride 1,000 mls @ 125 mls/hr 03/21/24 18:40 03/23/24 05:37 Normal Saline Iv IV CONT 125 mls/hr .Q8H SHIVA Administration Ondansetron HCl 4 mg 03/21/24 18:38 Ondansetron Inj 4 Mg/2 Ml Vial IV PUSH Q4H PRN Nausea Radiology Results: ITS Impressions Chest X-Ray 03/21/24 15:25 IMPRESSION: Subsegmental bibasilar atelectasis/consolidation. Small left pleural effusion. Head CT 03/22/24 09:31 IMPRESSION: 1. 2.0 cm intra-axial left frontal lobe mass with surrounding vasogenic edema concerning for malignancy. Additional small suspected nodule also in the left frontal lobe and new cluster of calcifications in the left occipital suggesting this may be related to metastatic disease in this patient with reported history of prior lung cancer. Consider further evaluation with pre and postcontrast brain MR as well as CT of the chest, abdomen and pelvis to assess for any additional metastatic disease. Chest/Abdomen/Pelvis CT 03/22/24 13:06 IMPRESSION: 1. Liver masses and widespread bone lesions, consistent with metastatic disease. 2. 3.1 x 1.1 cm mass in left lung upper lobe, which may be primary bronchogenic carcinoma. Correlate with treatment history. 3. Small loculated left pleural effusion. Quality VTE Prophylaxis VTE prophylaxis: mechanical ordered and pharmacologic ordered
[2024-03-23] MEDS: SODIUM CHLORIDE 0.9% IV 1,000 ML 999 ML IV CONT (08:52)
[2024-03-23] MEDS: ENOXAPARIN 40 MG/0.4 ML SYRINGE SUB-Q (08:52)
[2024-03-23] MEDS: SULFAMETHOXAZOLE/TRIMETHOPRIM 800/160 MG DS TABLET 1 TAB PO (16:56)
[2024-03-23] MEDS: DOCUSATE SODIUM 100 MG CAPSULE PO (16:56)
[2024-03-24] VITALS (11 sets, daily range): BP systolic 101–136; BP diastolic 67–86; PULSE 69–96; RESP 12–18; TEMP 36.2–36.9; O2SAT 96–100
--- NOTE | 2024-03-24 07:39 | P.PNIM_ITS ---
Progress Note: A&P Assessment and Plan (1) Altered mental status: Code(s): R41.82 - Altered mental status, unspecified Status: Acute Assessment and Plan: increased confusion from yesterday, paranoid possibly due to UTI, start Septra sleep hygiene Atarax for anxiety or agitation the (2) Fall from ground level: Code(s): W18.30XA - Fall on same level, unspecified, initial encounter Status: Acute Assessment and Plan: possible syncope orthostatic vital signs Q shift Brain CT [facility] mass, [facility], patient already aware of mass CK 173 (3) Acute kidney injury: Code(s): N17.9 - Acute kidney failure, unspecified Status: Acute Assessment and Plan: Monitor strict I/O. Renally dose all medications and avoid nephrotoxic agents. (4) Dehydration: Code(s): E86.0 - Dehydration Status: Acute Assessment and Plan: patient received 2 L IV fluids on admission encourage oral intake drop in hemoglobin is likely due to dilution, no acute signs of bleeding (5) Squamous cell carcinoma lung: Code(s): C34.90 - Malignant neoplasm of unspecified part of unspecified bronchus or lung Status: Acute Assessment and Plan: chest x-ray showing Subsegmental bibasilar atelectasis/consolidation. Small left pleural effusion. 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 request records from the [place] to compare patient states that he is on oral chemotherapy, waiting on records from the [place] patient does not know his medications (6) UTI (urinary tract infection): Code(s): N39.0 - Urinary tract infection, site not specified Status: Acute Assessment and Plan: could be the reason for the fall 1+ leukocyte esterase, nitrogen is negative cultures shows Coagulase negative staphylococcus (7) Brain mass: Code(s): G93.89 - Other specified disorders of brain Status: Acute Assessment and Plan: known to patient with history squamous cell carcinoma lung CT chest abdomen pelvis with contrast with masses, wating on records from [place] to compair Plan Check orthostatic vital signs Q shift. Renally dose all medications and avoid nephrotoxic agents. started on Septra for UTI Time Spent With Patient Time with patient: Greater than 35 minutes Subjective Date/time seen: 03/24/24 07:39 Interval history: 78-year-old male with squamous cell carcinoma of the lung who presented to the emergency department via EMS from a local store for evaluation after a fall. Waiting on patient's records from the [place] to compare CT brain, chest abdomen pelvis to prior studies with malignancies. Drop in hemoglobin this morning could be delusional from fluids, hypotension overnight and dizziness fluid bolus ordered, SIDNEY resolved. PT ordered for discharge recommendations. Patient may need placement. patient started on Septra Patient A&Ox1 on am rounds Review of Systems Review of Systems: 12 systems were reviewed and are negativ e except for as per HPI. Exam Narrative: General: Mildly ill-appearing male supine in bed. Weight: 61.3 kg. BMI: 20.5. HEENT: Normocephalic, atraumatic. Hard of hearing. PERRL, EOMI. Sclera anicteric. Tacky mucous membranes. Neck: Supple. Respiratory: Respirations are nonlabored. Lung sounds are a bit diminished at the bases but otherwise clear to auscultation. Cardiovascular: Regular rate and rhythm with S1-S2. Gastrointestinal: Abdomen is soft, nontender, and nondistended with positive bowel sounds. Skin: Warm and dry. Skin tear on the right elbow. Extremities: No cyanosis, clubbing, or significant edema. Radial and pedal pulses intact. Neurological: Alert and oriented only to self. Cranial nerves 2-12 are grossly intact. No gross focal deficits to casual conversation. Gait was not assessed. Psychiatric: paranoid Objective Data Vital Signs Vital Signs: Vital Signs - 24 hr 03/23/24 13:29 03/23/24 13:33 03/23/24 13:37 Temperature Pulse Rate 100 107 H 113 H Respiratory Rate Blood Pressure 111/74 135/92 H 148/97 H Pulse Oximetry Oxygen Delivery 03/23/24 12:00 03/23/24 16:00 03/23/24 20:00 Temperature 97.8 F 97.6 F 96.9 F L Pulse Rate 90 74 68 Respiratory Rate 18 16 16 Blood Pressure 108/58 L 128/84 123/68 Pulse Oximetry 98 96 98 Oxygen Delivery 03/23/24 20:00 03/23/24 21:02 03/23/24 21:02 Temperature 96.9 F L Pulse Rate 68 95 82 Respiratory Rate 16 Blood Pressure 123/68 119/74 129/79 Pulse Oximetry 98 93 98 Oxygen Delivery 03/23/24 23:44 03/23/24 21:25 03/24/24 04:00 Temperature 97.2 F L 97.1 F L Pulse Rate 75 72 Respiratory Rate 14 12 Blood Pressure 126/74 136/75 Pulse Oximetry 95 99 Oxygen Delivery Room Air Intake/Output Intake/Output: Intake & Output 03/21/24 03/22/24 03/23/24 03/24/24 23:59 23:59 23:59 23:59 Intake Total 1197.9 3268.1 2354.6 250 Output Total 20 700 300 Balance 1177.9 2568.1 2054.6 250 Meds/Results Medications: Active Medications Generic Name Dose Route Start Last Admin Trade Name Freq PRN Reason Stop Dose Admin Acetaminophen 650 mg 03/21/24 18:38 Acetaminophen 325 Mg Tablet PO Q4H PRN Mild Pain (1-3) or Fever Docusate Sodium 100 mg 03/23/24 09:00 03/23/24 16:56 Docusate Sodium 100 Mg Capsule PO 100 mg BID SHIVA Administration Enoxaparin Sodium 40 mg 03/23/24 09:00 03/23/24 08:52 Enoxaparin 40 Mg/0.4 Ml Syringe SUB-Q 40 mg DAILY SHIVA Administration Hydroxyzine HCl 25 mg 03/23/24 14:37 Hydroxyzine Hcl 25 Mg Tablet PO Q6H PRN agitation, anxiety Ondansetron HCl 4 mg 03/21/24 18:38 Ondansetron Inj 4 Mg/2 Ml Vial IV PUSH Q4H PRN Nausea Polyethylene Glycol 17 gm 03/24/24 09:00 Polyethylene Glycol 3350 17 Gm Powd.Pack PO QAM SHIVA Senna/Docusate Sodium 1 tab 03/23/24 21:00 03/23/24 21:34 Senna/Docusate Sodium Tablet PO Not Given HS SHIVA Trimethoprim/Sulfamethoxazole 1 tab 03/23/24 17:00 03/23/24 16:56 Sulfamethoxazole/Trimethoprim 800/160 Mg Ds Tablet PO 03/30/24 09:01 1 tab BID SHIVA Administration Radiology Results: ITS Impressions Chest X-Ray 03/21/24 15:25 IMPRESSION: Subsegmental bibasilar atelectasis/consolidation. Small left pleural effusion. Head CT 03/22/24 09:31 IMPRESSION: 1. 2.0 cm intra-axial left frontal lobe mass with surrounding vasogenic edema concerning for malignancy. Additional small suspected nodule also in the left frontal lobe and new cluster of calcifications in the left occipital suggesting this may be related to metastatic disease in this patient with reported history of prior lung cancer. Consider further evaluation with pre and postcontrast brain MR as well as CT of the chest, abdomen and pelvis to assess for any additional metastatic disease. Chest/Abdomen/Pelvis CT 03/22/24 13:06 IMPRESSION: 1. Liver masses and widespread bone lesions, consistent with metastatic disease. 2. 3.1 x 1.1 cm mass in left lung upper lobe, which may be primary bronchogenic carcinoma. Correlate with treatment history. 3. Small loculated left pleural effusion. Quality VTE Prophylaxis VTE prophylaxis: mechanical ordered and pharmacologic ordered
[2024-03-24] MEDS: ENOXAPARIN 40 MG/0.4 ML SYRINGE SUB-Q (08:43)
[2024-03-24] MEDS: SULFAMETHOXAZOLE/TRIMETHOPRIM 800/160 MG DS TABLET 1 TAB PO ×2 (08:43→16:23)
--- NOTE | 2024-03-24 09:13 | PC.NURSE ---
Called son Afshin and discussed how I found what appears to be a fake tooth from prior dental procedure on patient's bedside table. We put it in a denture cup and Afshin is aware.
[2024-03-25] VITALS (11 sets, daily range): BP systolic 112–179; BP diastolic 53–99; PULSE 72–116; RESP 16–18; TEMP 36.3–36.9; O2SAT 94–100
--- NOTE | 2024-03-25 07:49 | P.PNIM_ITS ---
Progress Note: A&P Assessment and Plan (1) Altered mental status: Code(s): R41.82 - Altered mental status, unspecified Status: Acute Assessment and Plan: increased confusion from yesterday, paranoid possibly due to UTI, start Septra sleep hygiene Atarax for anxiety or agitation the mentation improving on antibiotics (2) Fall from ground level: Code(s): W18.30XA - Fall on same level, unspecified, initial encounter Status: Acute Assessment and Plan: possible syncope orthostatic vital signs Q shift Brain CT with mass, [facility], patient already aware of mass CK 173 PT OT reordered, prior to confusion was independent (3) Acute kidney injury: Code(s): N17.9 - Acute kidney failure, unspecified Status: Acute Assessment and Plan: Monitor strict I/O. Renally dose all medications and avoid nephrotoxic agents. (4) Dehydration: Code(s): E86.0 - Dehydration Status: Acute Assessment and Plan: patient received 2 L IV fluids on admission resolved encourage oral intake drop in hemoglobin is likely due to dilution, no acute signs of bleeding (5) Squamous cell carcinoma lung: Code(s): C34.90 - Malignant neoplasm of unspecified part of unspecified bronchus or lung Status: Acute Assessment and Plan: chest x-ray showing Subsegmental bibasilar atelectasis/consolidation. Small left pleural effusion. 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 (6) UTI (urinary tract infection): Code(s): N39.0 - Urinary tract infection, site not specified Status: Acute Assessment and Plan: could be the reason for the fall 1+ leukocyte esterase, nitrogen is negative cultures shows Coagulase negative staphylococcus Mentation improving on antibiotics (7) Brain mass: Code(s): G93.89 - Other specified disorders of brain Status: Acute Assessment and Plan: known to patient with history squamous cell carcinoma lung CT chest abdomen pelvis with contrast with masses, wating on records from [place] to compair Plan Check orthostatic vital signs Q shift. Renally dose all medications and avoid nephrotoxic agents. started on Septra for UTI, mentation improving Time Spent With Patient Time with patient: Greater than 35 minutes Subjective Date/time seen: 03/25/24 07:49 Interval history: 78-year-old male with squamous cell carcinoma of the lung who presented to the emergency department via EMS from a local store for evaluation after a fall. Waiting on patient's records from the [place] to compare CT brain, chest abdomen pelvis to prior studies with malignancies. Drop in hemoglobin this morning could be delusional from fluids, hypotension overnight and dizziness fluid bolus ordered, SIDNEY resolved. PT ordered for discharge recommendations. Patient may need placement. patient started on Septra patient's mentation is improving on antibiotics likely discharge home tomorrow. Recommend following up with oncologist outpatient and scans. Review of Systems Review of Systems: 12 systems were reviewed and are negativ e except for as per HPI. Exam Narrative: General: Mildly ill-appearing male supine in bed. Weight: 61.3 kg. BMI: 20.5. HEENT: Normocephalic, atraumatic. Hard of hearing. PERRL, EOMI. Sclera anicteric. Tacky mucous membranes. Neck: Supple. Respiratory: Respirations are nonlabored. Lung sounds are a bit diminished at the bases but otherwise clear to auscultation. Cardiovascular: Regular rate and rhythm with S1-S2. Gastrointestinal: Abdomen is soft, nontender, and nondistended with positive bowel sounds. Skin: Warm and dry. Skin tear on the right elbow. Extremities: No cyanosis, clubbing, or significant edema. Radial and pedal pulses intact. Neurological: Alert and oriented to self and place improving. Cranial nerves 2-12 are grossly intact. No gross focal deficits to casual conversation. Gait was not assessed. Psychiatric: Normal Objective Data Vital Signs Vital Signs: Vital Signs - 24 hr 03/24/24 09:21 03/24/24 08:00 03/24/24 12:00 Temperature 97.2 F L 97.6 F Pulse Rate 70 78 Respiratory Rate 15 16 Blood Pressure 130/68 132/78 Pulse Oximetry 98 98 Oxygen Delivery Room Air 03/24/24 16:00 03/24/24 18:15 03/24/24 18:19 Temperature 97.7 F Pulse Rate 78 69 76 Respiratory Rate 15 Blood Pressure 114/73 126/72 126/78 Pulse Oximetry 98 Oxygen Delivery 03/24/24 18:23 03/24/24 19:30 03/24/24 19:34 Temperature 98.1 F 98.5 F Pulse Rate 96 77 86 Respiratory Rate 18 18 Blood Pressure 127/86 113/67 129/80 Pulse Oximetry 96 100 Oxygen Delivery 03/24/24 19:39 03/24/24 20:00 03/25/24 00:00 Temperature 98.2 F 98.1 F 98.4 F Pulse Rate 89 77 74 Respiratory Rate 18 18 18 Blood Pressure 101/72 113/67 134/81 Pulse Oximetry 99 96 94 Oxygen Delivery 03/24/24 21:42 03/25/24 04:00 Temperature 97.5 F L Pulse Rate 72 Respiratory Rate 18 Blood Pressure 128/84 Pulse Oximetry 98 Oxygen Delivery Room Air Intake/Output Intake/Output: Intake & Output 03/22/24 03/23/24 03/24/24 03/25/24 23:59 23:59 23:59 23:59 Intake Total 3268.1 2354.6 610 Output Total 700 300 Balance 2568.1 2054.6 610 Meds/Results Medications: Active Medications Generic Name Dose Route Start Last Admin Trade Name Freq PRN Reason Stop Dose Admin Acetaminophen 650 mg 03/21/24 18:38 Acetaminophen 325 Mg Tablet PO Q4H PRN Mild Pain (1-3) or Fever Docusate Sodium 100 mg 03/23/24 09:00 03/25/24 07:40 Docusate Sodium 100 Mg Capsule PO Not Given BID [facility] Enoxaparin Sodium 40 mg 03/23/24 09:00 03/24/24 08:43 Enoxaparin 40 Mg/0.4 Ml Syringe SUB-Q 40 mg DAILY SHIVA Administration Hydroxyzine HCl 25 mg 03/23/24 14:37 Hydroxyzine Hcl 25 Mg Tablet PO Q6H PRN agitation, anxiety Ondansetron HCl 4 mg 03/21/24 18:38 Ondansetron Inj 4 Mg/2 Ml Vial IV PUSH Q4H PRN Nausea Polyethylene Glycol 17 gm 03/24/24 09:00 03/25/24 07:40 Polyethylene Glycol 3350 17 Gm Powd.Pack PO Not Given QAM [facility] Trimethoprim/Sulfamethoxazole 1 tab 03/23/24 17:00 03/24/24 16:23 Sulfamethoxazole/Trimethoprim 800/160 Mg Ds Tablet PO 03/30/24 09:01 1 tab BID SHIVA Administration Radiology Results: ITS Impressions Chest X-Ray 03/21/24 15:25 IMPRESSION: Subsegmental bibasilar atelectasis/consolidation. Small left pleural effusion. Head CT 03/22/24 09:31 IMPRESSION: 1. 2.0 cm intra-axial left frontal lobe mass with surrounding vasogenic edema concerning for malignancy. Additional small suspected nodule also in the left frontal lobe and new cluster of calcifications in the left occipital suggesting this may be related to metastatic disease in this patient with reported history of prior lung cancer. Consider further evaluation with pre and postcontrast brain MR as well as CT of the chest, abdomen and pelvis to assess for any additional metastatic disease. Chest/Abdomen/Pelvis CT 03/22/24 13:06 IMPRESSION: 1. Liver masses and widespread bone lesions, consistent with metastatic disease. 2. 3.1 x 1.1 cm mass in left lung upper lobe, which may be primary bronchogenic carcinoma. Correlate with treatment history. 3. Small loculated left pleural effusion. Quality VTE Prophylaxis VTE prophylaxis: mechanical ordered and pharmacologic ordered
[2024-03-25] MEDS: SULFAMETHOXAZOLE/TRIMETHOPRIM 800/160 MG DS TABLET 1 TAB PO ×2 (08:45→16:14)
[2024-03-25] MEDS: ENOXAPARIN 40 MG/0.4 ML SYRINGE SUB-Q (08:45)
[2024-03-26] VITALS: BP 118/71; PULSE 79; RESP 18; TEMP 36.7; O2SAT 95
--- NOTE | 2024-03-26 01:11 | PC.NURSE ---
Daylight Savings Time For Daylight Savings Time Ending in the Fall - Clocks are moved back. For Daylight Savings Time Beginning in the Spring - Clocks are moved ahead. For [facility], the time of change occurs at 0200 hrs. Time is taken from the hotel server. This entry on the patient's chart recognizes the change in time reflected during documentation. Example: 2 entries for vital signs may be charted for 0200 hrs.
[2024-03-26 04:00] VITALS: BP 108/67; PULSE 78; RESP 18; TEMP 36.8; O2SAT 97
[2024-03-26 06:33] VITALS: BP 108/67; PULSE 81; RESP 18; TEMP 36.8; O2SAT 97
[2024-03-26] MEDS: DOCUSATE SODIUM 100 MG CAPSULE PO (09:02)
[2024-03-26] MEDS: polyethylene glycoL 3350 17 GM POWD.PACK PO (09:02)
[2024-03-26] MEDS: SULFAMETHOXAZOLE/TRIMETHOPRIM 800/160 MG DS TABLET 1 TAB PO (09:02)
[2024-03-26] MEDS: ENOXAPARIN 40 MG/0.4 ML SYRINGE SUB-Q (09:03)
[2024-03-26 10:39] VITALS: BP 108/47; PULSE 64; RESP 20; TEMP 36.1; O2SAT 95
--- NOTE | 2024-03-26 12:49 | P.DS_ITS ---
DS: Admitting Diagnosis Discharge Date 03/26/24 Admitting Diagnosis Fall. DS: Discharge Diagnosis Discharge Diagnosis (1) Altered mental status: Code(s): R41.82 - Altered mental status, unspecified Status: Acute (2) Fall from ground level: Code(s): W18.30XA - Fall on same level, unspecified, initial encounter Status: Acute (3) Dehydration: Code(s): E86.0 - Dehydration Status: Acute (4) Near syncope: Code(s): R55 - Syncope and collapse Status: Acute DS: Summary Hospital Course Hospital Course: This is a 78-year-old male with squamous cell carcinoma of the lung who presented to the emergency department via EMS from a local store for evaluation after a fall. The patient provides the following history. He was out shopping today and began to feel a bit lightheaded and dizzy. This caused him to stumble and fall backwards onto the floor. He does not think he hit his head but cannot say for sure. There was no loss of consciousness and he denies injuries. With further questioning he admits that is not unusual for him to feel lightheaded and dizzy. He says he has been eating and drinking as per usual. He denies vertigo, weight loss, change in medications, chest pain, pleuritic pain, shortne ss of breath, nausea, vomiting, diarrhea, dysuria, and cold and flu symptoms. In the ED: Vitals were stable on arrival. Labs were significant for a hemoglobin of 13.8, BUN 34, creatinine 1.80, AST 64, ALT 139. Urine was positive for trace ketones and 1+ leukocyte esterase. Chest x-ray showed subsegmental bibasilar atelectasis/consolidation a small left pleural effusion. He was given a 2 L normal saline bolus and is being admitted in this setting for further treatment and evaluation. He is being admitted in this setting for further treatment and evaluation. Patient was rehydrated with resolution of symptoms. urine culture grew Coagulase negative, not no Saprophyticus. Thus antibiotics was discontinued. [place] resolved with rehydration. PT/OT evaluated and recommended home health Patient will follow up with PCP in 3-5 days and continue follow up with oncology for metastatic cancer including the brain. Assessment and Plan (1) Altered mental status: resolved Code(s): R41.82 - Altered mental status, unspecified Status: Acute Assessment and Plan: from dehydration follow up with PCP in 3-5 days (2) Fall from ground level: Code(s): W18.30XA - Fall on same level, unspecified, initial encounter Status: Acute Assessment and Plan: possible syncope orthostatic vital signs Q shift Brain CT with mass, [facility], patient already aware of mass CK 173 PT OT recommended Home health (3) Acute kidney injury: resolved Code(s): N17.9 - Acute kidney failure, unspecified Status: Acute Assessment and Plan: Monitor strict I/O. Renally dose all medications and avoid nephrotoxic agents. 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 Small left pleural effusion. 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 [facility] Patient noted he follows with oncology and brain mass is already known to his oncology (6) UTI (urinary tract infection): ruled out Code(s): N39.0 - Urinary tract infection, site not specified Status: Acute Assessment and Plan: could be the reason for the fall 1+ leukocyte esterase, nitrogen is negative cultures shows Coagulase negative staphylococcus, but not saprophyticus discontinued antibiotics (7) Brain mass: Code(s): G93.89 - Other specified disorders of brain Status: Acute Assessment and Plan: known to patient with history squamous cell carcinoma lung CT chest abdomen pelvis with contrast with masses Continue follow up with oncology Time Spent with Patient Time attestation: Total time spent providing and/or coordinating discharge services: Discharge Plan Discharge Attending physician on discharge: Yves Bates Discharging Clinician: Yves Bates Anticipated Discharge Date/Time: 03/26/24 12:34 Patient Disposition: Home Health Service Activity: as tolerated Diet: as tolerated Patient Instructions: Antibiotic Form, Pain Management (DC) Stand Alone Forms: General Discharge Information Follow-up/Referrals: Bright Harding MD [Primary Care Provider] - (F/u with PCP in 3-5 days ) Discharge Medications: No Action Unable to Obtain Home Medications Date of admission: 03/22/24 08:28 Primary Care Provider: Bright Harding Admitting Provider: Yves Bates Attending physician on admission: Yves Bates Condition: Stable
[2024-03-26 14:35] VITALS: BP 106/64; PULSE 84; RESP 24; TEMP 36.7; O2SAT 97
== END 2024-03-26 16:30 | disposition home or self-care (01) | DRG 683 ==
LOC: ANHED 18:38 → ANH2MED 18:59
PROVIDERS: Emergency Medicine; Physician Assistant; Admitting Provider Internal Medicine; Emergency Provider Family Medicine; PCP Family Medicine Adolescent Medicine; Visit Provider Internal Medicine
DX: N17.9 Acute kidney failure, unspecified (principal); C34.90 Malignant neoplasm of unspecified part of unspecified bronchus or lung; N39.0 Urinary tract infection, site not specified; C79.31 Secondary malignant neoplasm of brain; C78.7 Secondary malignant neoplasm of liver and intrahepatic bile duct; B95.7 Other staphylococcus as the cause of diseases classified elsewhere; E86.0 Dehydration; W18.30XA Fall on same level, unspecified, initial encounter; F41.9 Anxiety disorder, unspecified; R45.1 Restlessness and agitation; G93.89 Other specified disorders of brain; Z85.118 Personal history of other malignant neoplasm of bronchus and lung; Z86.718 Personal history of other venous thrombosis and embolism; R55 Syncope and collapse
CPT/HCPCS: 36415; 70450; 71046; 71260; 74177; 80053; 81001; 82550; 83735; 85025; 85027; 87086; 93005; 96360; 96361; 97161; 99285; A9270; G0378; J0696; J1650; J7030; Q9967

== ENCOUNTER 2024-04-05 20:08 | Emergency (ER) | payer OTHER, SELFPAY ==
--- NOTE | ~2024-04-05 | CT_ITS ---
History: Found down after a remote fall PROCEDURE: CT cervical spine without intravenous contrast. COMPARISON: None TECHNIQUE: Multiple contiguous axial images of the cervical spine were performed without the administration of i ntravenous contrast. DLP: 223 mGy-cm FINDINGS: Preservation of the normal curvature of the cervical spine is identified. Widespread blastic lesions identified within the visualized osseous structures consistent with patien t's (likely) metastatic disease. No acute fractures are present. The bilateral lung apices demonstrate emphysema and scattered nodules but otherwise are unremarkable. Residual aerated dense fluid dependently within the trachea on the caudal-most images, suggesting asp iration. Impression: No acute fracture. Findings consistent with (likely) widespread metastatic bony disease. Reviewed, dictated and finalized at location A. ATORY OPERATOR Impression: No acute fracture. Findings consistent with (likely) widespread metastatic bony disease.
--- NOTE | ~2024-04-05 | XR_ITS ---
CHEST RADIOGRAPH CLINICAL HISTORY: weakness . COMPARISON: 03/21/2024 and 01/14/2023 TECHNIQUE: Single portable view of the chest. FINDINGS The cardiomediastinal silhouette is unremarkable. Coarse interstitial lung markings are now identified. Increased interstitial markings are identified bilaterally, findings suggesting mild pulmonary vascul ar congestion. The lungs are otherwise clear. Visualized osseous structures and soft tissues are unremarkable. IMPRESSION: Mild pulmonary vascular congestion, without focal infiltrate or effusion. Coarse interstitial lung markings, suggesting chronic lung disease. Reviewed, dictated and finalized at location A. IN STRIPPER
--- NOTE | ~2024-04-05 | CT_ITS ---
History: Fall. PROCEDURE: CT head without contrast. COMPARISON: 03/22/2024 TECHNIQUE: Axial imaging of the head performed from the skull base to the vertex without IV contrast. Sagittal a nd coronal reformations obtained. DLP: 605 mGy-cm FINDINGS: Redemonstration of a 23 x 21 mm mass in the left frontal lobe with surrounding vasogenic edema. Addit ional smaller masses detected within the left cerebral hemisphere, unchanged from prior. The ventricles remain dilated. The dilatation of the ventricles is proportional to the degree of sulcal prominence, not uncommon in the senescent brain. Decreased attenuation is identified within the periventricular white matter, likely secondary to micr ovascular ischemic disease, in a patient of this age. There is no abnormal extra-axial fluid collection or intracranial hemorrhage. Visualized paranasal sinuses are clear. The mastoid air cells are well aerated. No acute displaced fractures within the overlying cranium. Impression: Findings within the left frontal lobe, consistent with metastatic disease (most likely) unchanged fro m prior study performed 03/22/2024. No acute intracranial hemorrhage. Reviewed, dictated and finalized at location A. LATORY AFFAIRS ANALYST Impression: Findings within the left frontal lobe, consistent with metastatic disease (most likely) unchanged from prior study performed 03/22/2024. No acute intracranial hemorrhage.
[2024-04-05 19:58] VITALS: BP 128/84; PULSE 119; RESP 16; TEMP 36.4; O2SAT 99
--- NOTE | 2024-04-05 20:10 | ECG_ITS ---
Test Date: 2024-04-05 20:10:11 Measurements Intervals [place] Rate: 113 P: 73 ND: 124 QRS: 95 QRSD: 138 T: 12 QT: 357 QTc: 490 Interpretive Statements SINUS TACHYCARDIA RIGHT BUNDLE BRANCH BLOCK BASELINE ARTIFACT- I, II, III, AVR, AVL, AVF, V1-V2 ABNORMAL ECG Compared to ECG 03/21/2024 14:52:44 HEART RATE HAS INCREASED Electronically Signed On 04-06-2024 05:22:44 LINEMAN by Fuad Grace D.O.
--- NOTE | 2024-04-05 21:22 | PC.NURSE ---
Numerous attempts for blood work by RN, Cary Cardona RN, ER tire technician without success. Phlebotomy called by battery charger conveyor line.
[2024-04-05 21:46] LABS: Basophils Percent Auto 0.2 % (0.2-1.2); Eosinophils Percent Auto 0.3 % (0-4.4); Hematocrit 50.5 % (42.0-52.0); Hemoglobin 15.5 g/dL (14.0-18.0); Immature Granulocyte Absolute 0.05 K/mm3 (0.00-0.031); Immature Granulocyte Percent A 0.4 % (0-0.5); Lymphocytes Absolute Auto 0.68 K/mm3 (0.9-3.2); Lymphocytes Percent Auto 5.4 % (18.3-44.2); Mean Corpuscular HGB Conc 30.7 g/dl (32-36); Mean Corpuscular Hemoglobin 31.6 pg (26-34); Mean Corpuscular Volume 102.9 fl (80-100); Mean Platelet Volume 11.3 fl (7.4-10.4); Monocytes Absolute Auto 0.8 K/mm3 (0.1-0.6); Monocytes Percent Auto 6.6 % (2.6-8.5); Neutrophils Percent Auto 87.1 % (45.5-73.1); Nucleated Red Blood Cells Perc 0.2 % (0.0-0.2); Platelet Count Result 336 k/mm3 (150-375); Red Blood Count 4.91 M/mm3 (4.6-6.20); Red Cell Distribution Width 13.3 % (11.5-14.5); White Blood Count 12.6 K/mm3 (4.5-10.0)
[2024-04-05 21:56] LABS: Ethanol < 10 mg/dL (<10)
[2024-04-05 21:57] LABS: INR 1.2; Prothrombin Time 15.4 Seconds (11.1-14.7)
[2024-04-05 21:58] LABS: Alanine Aminotransferase 59 U/L (6-50); Albumin Level 4.8 g/dL (3.5-5.1); Alkaline Phosphatase 138 U/L (38-126); Anion Gap 18 mmol/L (4-12); Aspartate Amino Transferase 98 U/L (17-59); Bilirubin,Total 0.9 mg/dL (0.2-1.3); Blood Urea Nitrogen 115 mg/dL (9-20); Calcium 10.7 mg/dL (8.4-10.2); Carbon Dioxide 23 mmol/L (22-30); Chloride 110 mmol/L (98-107); Creatine Kinase 1136 U/L (55-170); Estimated CRCL calculation 22 ml/min; Estimated Glomerular Filt Rate 32; Glucose 120 mg/dL (65-110); Lipase 567 U/L (23-300); Magnesium 3.2 mg/dL (1.6-2.3); Potassium 4.4 mmol/L (3.4-5.0); Sodium 151 mmol/L (137-145)
[2024-04-05 21:59] LABS: Lactic Acid Reflex 2.1 mmol/L (0.7-2.0); Partial Thromboplastin Time 31.7 Seconds (22.3-36.8)
[2024-04-05 22:13] LABS: Troponin I 0.038 ng/mL (0.000-0.034)
[2024-04-05 22:20] LABS: Procalcitonin 3.5 ng/mL
--- NOTE | 2024-04-05 22:21 | ED_ITS ---
HPI - General Adult General Chief complaint: Chest Pain Stated complaint: STEMI History of Present Illness HPI narrative: patient 78-year-old gentleman who presents emergency department with chief complaint of fall. Patient reports that he was feeling weak and run down and fell to the ground has laid there for a couple of days patient reports that he is not hurting anywhere but feels very weak and was unable to get up and walk on his own. The patient denies chest pain denies shortness of breath Related Data Home Medications Medication Instructions Recorded Confirmed Unable to Obtain Home Medications 03/21/24 03/21/24 Allergies Allergy/AdvReac Type Severity Reaction Status Date / Time tetracycline Allergy Unknown Unknown Verified 03/21/24 20:14 DOXYCYCLINE Allergy Unknown Unknown Uncoded 03/21/24 20:14 NONE Allergy Unknown Unknown Uncoded 03/21/24 20:14 DOXYCYCLINE HYCLATE (Generic Allergy Y Uncoded 11/14/02 14:06 Allergy) [facility] Past Medical History Medical History (Updated 04/06/24 @ 00:36 by Ferny Mendez MD) Diverticulitis (01/2001) Seasonal allergies Squamous cell carcinoma lung Superficial venous thrombosis of left arm (12/2022) Family History Family History Other Diabetes mellitus Heart disease Social History Social History (Updated 03/22/24 @ 00:05 by Samira Joy PA-C) Social History: Surrogate medical decision maker: Bharat Mejia, children. Code status: Full code. 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. Spiritual care concerns: No Course Course Emergency Course: GENERAL: Well-appearing, well-nourished, and in no acute distress. HEAD: Normocephalic, atraumatic. EYES: PERRLA and EOMI. ENT: Nares clear, no rhinorrhea or epistaxis. Mucous membranes moist. NECK: Supple. CHEST: Clear to auscultation. No respiratory distress. HEART: Regular rate and rhythm. No murmur heard. Normal peripheral pulses. ABDOMEN: Soft, nontender, nondistended, normal active bowel sounds. EXTREMITIES: Normal range of motion. No edema. SKIN: Warm, dry, no rash. covered in urine and feces NEURO: No focal deficits. Alert and oriented x3. PSYCH: Normal mood and affect. Vital Signs Vital signs: Vital Signs Temperature 36.4 C 04/05/24 19:58 Pulse Rate 119 H 04/05/24 19:58 Respiratory Rate 16 04/05/24 19:58 Blood Pressure 128/84 04/05/24 19:58 Pulse Oximetry 99 04/05/24 19:58 Oxygen Delivery Room Air 04/05/24 19:58 Temperature 36.4 C 04/05/24 19:58 Pulse Rate 100 04/05/24 23:40 Respiratory Rate 16 04/05/24 23:40 Blood Pressure 117/74 04/05/24 23:40 Pulse Oximetry 97 04/05/24 23:40 Oxygen Delivery Room Air 04/05/24 19:58 Medical Decision Making [facility] Narrative Medical decision making narrative: differential diagnosis includes rhabdomyolysis, dehydration, acute kidney injury, ACS EKG showed an underlying bundle branch block that is unchanged with no acute ST elevations laboratory studies showed acute kidney injury with a creatinine of 2.0 lactic acid slightly elevated at 2.1 the patient had a CK of 1136 troponin was elevated at 0.038 lipase was also slightly elevated at 567 procalcitonin is 3.5 the [facility] and the case was discussed with the [facility] and was accepted by Dr. Dutta Vital Signs Vital Signs: Vital Signs Temperature 36.4 C 04/05/24 19:58 Pulse Rate 119 H 04/05/24 19:58 Respiratory Rate 16 04/05/24 19:58 Blood Pressure 128/84 04/05/24 19:58 Pulse Oximetry 99 04/05/24 19:58 Oxygen Delivery Room Air 04/05/24 19:58 Temperature 36.4 C 04/05/24 19:58 Pulse Rate 100 04/05/24 23:40 Respiratory Rate 16 04/05/24 23:40 Blood Pressure 117/74 04/05/24 23:40 Pulse Oximetry 97 04/05/24 23:40 Oxygen Delivery Room Air 04/05/24 19:58 Lab Data 04/05/24 21:38 04/05/24 21:38 Labs: Lab Results 04/05/24 04/05/24 Range/Units 21:38 22:06 WBC 12.6 H (4.5-10.0) K/mm3 RBC 4.91 (4.6-6.20) M/mm3 Hgb 15.5 D (14.0-18.0) g/dL Hct 50.5 (42.0-52.0) % MCV 102.9 H (80-100) fl MCH 31.6 (26-34) pg MCHC 30.7 L (32-36) g/dl RDW 13.3 (11.5-14.5) % Plt Count 336 D (150-375) k/mm3 MPV 11.3 H (7.4-10.4) fl Immature Gran % (Auto) 0.4 (0-0.5) % Neut % (Auto) 87.1 H (45.5-73.1) % Lymph % (Auto) 5.4 L (18.3-44.2) % [place] % (Auto) 6.6 (2.6-8.5) % Eos % (Auto) 0.3 (0-4.4) % Baso % (Auto) 0.2 (0.2-1.2) % Lymph # (Auto) 0.68 L (0.9-3.2) K/mm3 [place] # (Auto) 0.8 H (0.1-0.6) K/mm3 Eos # (Auto) 0.0 (0-0.3) K/mm3 Baso # (Auto) 0.0 (0.0-0.1) K/mm3 Abs Immat Gran (auto) 0.05 H (0.00-0.031) K/mm3 Absolute Neuts (auto) 11.0 H (1.3-6.7) K/mm3 Absolute Nucleated RBC 0.020 H (0.0-0.012) K/mm3 Nucleated RBC % 0.2 (0.0-0.2) % PT 15.4 H (11.1-14.7) Seconds INR 1.2 APTT 31.7 (22.3-36.8) Seconds Sodium 151 H (137-145) mmol/L Potassium 4.4 (3.4-5.0) mmol/L Chloride 110 H (98-107) mmol/L Carbon Dioxide 23 (22-30) mmol/L Anion Gap 18 H (4-12) mmol/L BUN 115 H D (9-20) mg/dL Creatinine 2.00 H (0.7-1.3) mg/dL Estim Creat Clear Calc 22 ml/min Estimated GFR 32 L (59 - ) Glucose 120 H (65-110) mg/dL Lactic Acid 2.1 H (0.7-2.0) mmol/L Calcium 10.7 H (8.4-10.2) mg/dL Magnesium 3.2 H (1.6-2.3) mg/dL Total Bilirubin 0.9 (0.2-1.3) mg/dL AST 98 H (17-59) U/L ALT 59 H (6-50) U/L Alkaline Phosphatase 138 H (38-126) U/L Total Creatine Kinase 1136 H (55-170) U/L Troponin I 0.038 H* (0.000-0.034) ng/mL Total Protein 10.0 H (6.3-8.2) g/dL Albumin 4.8 (3.5-5.1) g/dL Lipase 567 H (23-300) U/L Procalcitonin 3.5 ng/mL Urine Color Dark yellow (Yellow) Urine Appearance Clear (Clear) Urine pH 5.0 (5.0-9.0) Ur Specific [place] 1.023 (1.001-1.035) Urine Protein 1+ H (Negative) mg/dL Urine Glucose (UA) Negative (Negative) mg/dL Urine Ketones Trace H (Negative) mg/dL Ur Blood (Man) Trace (Negative) Urine Nitrate Negative (Negative) Urine Bilirubin Negative (Negative) Urine Urobilinogen 1.0 (<2.0) mg/dL Add Ur Microanalysis Reviewed Leukocyte Esterase Rfl Trace H (Negative) SANDY/UL Urine RBC 21-50 H (0-2) /hpf Urine WBC 0-5 (0-3) /hpf Ur Squamous Epith Cells None seen (Few) /hpf Urine Bacteria None seen /hpf Urine Casts 11-20 Urine Opiates Screen Negative (Negative) Urine Methadone Screen Negative (Negative) Ur Barbiturates Screen Negative (Negative) Ur Phencyclidine Scrn Negative (Negative) Ur Amphetamine Screen Negative (Negative) U Benzodiazepines Scrn Negative (Negative) Urine Cocaine Screen Negative (Negative) U Cannabinoids Screen Negative (Negative) Ethyl Alcohol < 10 (<10) mg/dL Discharge Plan Discharge Clinical Impression: Acute kidney injury, Dehydration, Rhabdomyolysis Patient Disposition: [facility] Condition: Stable Prescriptions: No Action Unable to Obtain Home Medications Follow-up/Referrals: Bright Harding MD [Primary Care Provider] - Time of Disposition: 00:36
[2024-04-05 22:28] LABS: Barbiturate Screen Urine Negative (Negative); Benzodiazepines Screen Urine Negative (Negative)
[2024-04-05 22:31] VITALS: BP 98/72; PULSE 104; RESP 15; O2SAT 100
[2024-04-05 22:32] LABS: Add Urine Microscopic? YES; Appearance Urine Clear (Clear); Bacteria Urine None Seen /hpf; Bilirubin Urine Negative (Negative); Blood Urine Trace (Negative); Color Urine Dark Yellow (Yellow); Glucose Urine UA Negative (Negative); Ketones Urine Trace mg/dL (Negative); Leukocyte Esterase Ur Trace LEU/UL (Negative); Need Manual Microscopic Reviewed; Nitrate Urine Negative (Negative); Protein Urine 1+ mg/dL (Negative); RBC Urine 21-50 /hpf (0-2); Specific Grav Ur 1.023 (1.001-1.035); Squamous Epithelial Cell Urine None Seen /hpf (Few); WBC Urine 0-5 /hpf (0-3)
[2024-04-05] MEDS: SODIUM CHLORIDE 0.9% IV 1,000 ML 999 ML IV CONT (22:35)
[2024-04-05 22:36] LABS: Amphetamine Screen Urine Negative (Negative); Cannabinoid Screen Urine Negative (Negative); Cocaine Screen Urine Negative (Negative); Methadone Screen Urine Negative (Negative); Opiate Screen Urine Negative (Negative); Phencyclidine Screen Urine Negative (Negative)
[2024-04-05 23:40] VITALS: BP 117/74; PULSE 100; RESP 16; O2SAT 97
[2024-04-06 00:44] LABS: Reflex Lactic Acid Yes or No Add Lactic
--- NOTE | 2024-04-06 00:44 | PC.NURSE ---
Phlebotomy called for troponin 3 hour.
[2024-04-06 01:06] VITALS: BP 120/84; PULSE 86; RESP 16; O2SAT 98
[2024-04-06 01:30] LABS: Lactic Acid 1.9 mmol/L (0.7-2.0)
--- NOTE | 2024-04-06 01:39 | PC.NURSE ---
Patient accepted at [address] Report given to Winter PRICE without questions.
[2024-04-06 01:42] LABS: Troponin I 0.036 ng/mL (0.000-0.034)
[2024-04-06 02:54] VITALS: BP 108/62; PULSE 97; RESP 16; O2SAT 97
== END 2024-04-06 02:56 ==
PROVIDERS: Emergency Provider Emergency Medicine; PCP Family Medicine Adolescent Medicine
DX: N17.9 Acute kidney failure, unspecified (principal); E86.0 Dehydration; M62.82 Rhabdomyolysis; Z85.118 Personal history of other malignant neoplasm of bronchus and lung; Z87.891 Personal history of nicotine dependence; I45.10 Unspecified right bundle-branch block; R00.0 Tachycardia, unspecified; R93.7 Abnormal findings on diagnostic imaging of other parts of musculoskeletal system; R93.0 Abnormal findings on diagnostic imaging of skull and head, not elsewhere classified; R09.89 Other specified symptoms and signs involving the circulatory and respiratory systems
CPT/HCPCS: 36415; 70450; 71045; 72125; 80053; 80307; 81001; 82077; 82550; 83605; 83690; 83735; 84145; 84484; 85025; 85610; 85730; 93005; 96360; 99285; J7030